=== PATIENT | male | born 1985 | race African-American/Black ===

== ENCOUNTER 2017-04-19 12:10 | Emergency (ER) | payer OTHER ==
[~2017-04-19] VITALS: Ht 180.3 cm; Wt 194.6 kg
[2017-04-19 12:39] LABS: HEMATOCRIT 39.8 % (38.0-50.0); MCH 28.4 PG (29.0-34.0); MCHC 32.4 G/DL (30.0-36.0); MCV 87.7 FL (86-99); MEAN PLAT.VOLUME 9.2 uM^3 (9.0-12.4); PLATELET COUNT 333 K/uL (156-360); RBC DIS.WIDTH-CV 12.5 % (11.8-14.6); RBC DIS.WIDTH-SD 40.1 % (39-53); RED BLOOD COUNT 4.54 M/uL (4.00-5.50); WHITE BLOOD COUNT 9.3 K/uL (4.1-10.2)
[2017-04-19 12:47] LABS: CHLORIDE 105 mEq/L (99-109); POTASSIUM 3.8 mEq/L (3.7-5.4); SODIUM 139 mEq/L (136-147)
[2017-04-19 12:49] LABS: GLUCOSE 106 mg/dL (70-99)
[2017-04-19 12:50] LABS: ANION GAP 10 MEQ/L (2-14)
[2017-04-19 12:53] LABS: GFR ESTIMATE (CALCULATED) > 59 mL/min/
[2017-04-19 12:54] LABS: UREA NITROGEN (BUN) 13 mg/dL (9-23)
[2017-04-19 13:01] LABS: TROP-I INTERPRETATION NEGATIVE; TROPONIN-I < 0.01 ng/mL (0.0-0.30)
[2017-04-19 14:43] LABS: TROP-I INTERPRETATION NEGATIVE; TROPONIN-I < 0.01 ng/mL (0.0-0.30)
[2017-04-19 14:57] VITALS: BP 150/77
== END 2017-04-19 14:58 | disposition home or self-care (01) ==
LOC: EME 12:10
PROVIDERS: Nurse Practitioner Family
DX: R00.2 Palpitations (principal); F14.90 Cocaine use, unspecified, uncomplicated; F32.9 Major depressive disorder, single episode, unspecified; F17.200 Nicotine dependence, unspecified, uncomplicated; E66.01 Morbid (severe) obesity due to excess calories
CPT/HCPCS: 71020; 80048; 84484; 85027; 93005; 99281; 99285

== ENCOUNTER 2017-07-06 14:43 | Emergency (ER) | payer OTHER ==
[~2017-07-06] VITALS: Ht 180.3 cm; Wt 182.8 kg
[2017-07-06 18:55] LABS: HEMATOCRIT 44.2 % (38.0-50.0); HEMOGLOBIN 14.1 G/DL (12.5-16.6); MCH 28.4 PG (29.0-34.0); MCHC 31.9 G/DL (30.0-36.0); MCV 89.1 FL (86-99); PLATELET COUNT 295 K/uL (156-360); RBC DIS.WIDTH-CV 13.2 % (11.8-14.6); RBC DIS.WIDTH-SD 42.9 % (39-53); RED BLOOD COUNT 4.96 M/uL (4.00-5.50); WHITE BLOOD COUNT 7.3 K/uL (4.1-10.2)
[2017-07-06 19:03] LABS: CHLORIDE 103 mEq/L (99-109); POTASSIUM 4.3 mEq/L (3.7-5.4); SODIUM 140 mEq/L (136-147)
[2017-07-06 19:05] LABS: GLUCOSE 109 mg/dL (70-99)
[2017-07-06 19:09] LABS: CREATININE 1.4 mg/dL (0.6-1.3); GFR ESTIMATE (CALCULATED) > 59 mL/min/ (58.99-99999)
[2017-07-06 19:10] LABS: UREA NITROGEN (BUN) 10 mg/dL (9-23)
[2017-07-06] MEDS ORDERED: CLINDAMYCIN HC300 MG PO (19:19)
[2017-07-06] MEDS ORDERED: XARELTO15 MG PO (20:29)
[2017-07-06 20:55] VITALS: BP 142/82
== END 2017-07-06 20:56 | disposition home or self-care (01) ==
LOC: EME 14:43
PROVIDERS: Physician Assistant
PROC: 0H9EXZZ Drainage of Left Lower Arm Skin, External Approach (ICD-10-PCS; principal; 2017-07-06)
DX: L02.414 Cutaneous abscess of left upper limb (principal); I82.622 Acute embolism and thrombosis of deep veins of left upper extremity; F19.10 Other psychoactive substance abuse, uncomplicated
CPT/HCPCS: 73080; 80048; 83605; 85027; 87040; 87070; 87075; 87077; 87147; 87186; 87205; 93971; 99281; 99284

== ENCOUNTER 2017-10-13 21:06 | Emergency (ER) | payer OTHER ==
[~2017-10-13] VITALS: Ht 175.3 cm; Wt 181.0 kg
[~2017-10-13 21:06] MED LIST: CLINDAMYCIN HC300 MG PO; XARELTO15 MG PO
[2017-10-13 21:28] LABS: HEMATOCRIT 40.6 % (38.0-50.0); HEMOGLOBIN 13.6 G/DL (12.5-16.6); MCH 28.9 PG (29.0-34.0); MCHC 33.5 G/DL (30.0-36.0); MCV 86.4 FL (86-99); PLATELET COUNT 312 K/uL (156-360); WHITE BLOOD COUNT 7.4 K/uL (4.1-10.2)
[2017-10-13 21:41] LABS: ALBUMIN 4.4 g/dL (3.2-4.8); CHLORIDE 108 mEq/L (99-109); POTASSIUM 3.9 mEq/L (3.7-5.4); SODIUM 141 mEq/L (136-147)
[2017-10-13 21:44] LABS: GLUCOSE 97 mg/dL (70-99); TOTAL PROTEIN 7.8 g/dL (6.4-8.3)
[2017-10-13 21:46] LABS: TOTAL BILIRUBIN 1.1 mg/dL (0.0-1.0)
[2017-10-13 21:47] LABS: ALKALINE PHOSPHATASE 86 IU/L (3-129); SERUM ETHYL ALCOHOL < 10 mg/dL
[2017-10-13 21:48] LABS: CREATININE 1.4 mg/dL (0.6-1.3); GFR ESTIMATE (CALCULATED) > 59 mL/min/ (58.99-99999)
[2017-10-13 21:49] LABS: AST (GOT) 85 IU/L (2-34); UREA NITROGEN (BUN) 13 mg/dL (9-23)
[2017-10-13 21:50] LABS: ALT (GPT) 69 IU/L (3-49)
[2017-10-13 21:51] LABS: LIPASE 12 U/L (1.0-51.0)
[2017-10-13 21:53] LABS: TROP-I INTERPRETATION NEGATIVE; TROPONIN-I < 0.01 ng/mL (0.0-0.30)
[2017-10-13 22:05] LABS: AMPHETAMINE NEGATIVE (500 ng/mL); BARBITURATES NEGATIVE (200 ng/mL); BENZODIAZEPINES NEGATIVE (150 ng/mL); BUPRENORPHINE NEGATIVE (10 ng/mL); COCAINE PRESUMPTIVE POSITIVE (150 ng/mL); METHADONE NEGATIVE (200 ng/mL); METHAMPHETAMINE NEGATIVE (500 ng/mL); OPIATES (MORPHINE) NEGATIVE (100 ng/mL); OXYCODONE NEGATIVE (100 ng/mL); PHENCYCLIDINE NEGATIVE (25 ng/mL); PROPOXYPHENE NEGATIVE (300 ng/mL); THC CANNABINOIDS NEGATIVE (50 ng/mL); TRICYCLIC ANTIDEPRESSANTS NEGATIVE (300 ng/mL)
[2017-10-14 03:20] VITALS: BP 144/91
== END 2017-10-14 03:35 | disposition home or self-care (01) ==
LOC: EME 21:06
PROVIDERS: Emergency Medicine
DX: T40.5X1A Poisoning by cocaine, accidental (unintentional), initial encounter (principal); G47.30 Sleep apnea, unspecified; E66.01 Morbid (severe) obesity due to excess calories; Z68.43 Body mass index [BMI] 50.0-59.9, adult; I45.10 Unspecified right bundle-branch block
CPT/HCPCS: 71045; 80053; 83690; 84484; 84999; 85027; 93005; 99281; 99284; G0480

== ENCOUNTER 2018-02-19 10:17 | Emergency (ER) | payer OTHER ==
[~2018-02-19] VITALS: Ht 180.3 cm; Wt 185.5 kg
[2018-02-19 11:50] LABS: BASOPHIL (%) 0.7 % (0-1); EOSINOPHIL (%) 1.6 % (0-5); EOSINOPHIL COUNT 0.1 K/uL (0-0.3); HEMATOCRIT 39.6 % (38.0-50.0); HEMOGLOBIN 13.2 G/DL (12.5-16.6); IMMATURE GRANULOCYTE (%) 0.2 % (0.0-0.7); LYMPHOCYTE (%) 36.3 % (15-42); LYMPHOCYTE COUNT 2.1 K/uL (1.0-2.8); MCH 29.8 PG (29.0-34.0); MCHC 33.3 G/DL (30.0-36.0); MCV 89.4 FL (86-99); MONOCYTE (%) 9.4 % (3-12); MONOCYTE COUNT 0.5 K/uL (0-0.8); NEUTROPHIL (%) 51.8 % (45-76); PLATELET COUNT 227 K/uL (156-360); RBC DIS.WIDTH-CV 12.7 % (11.8-14.6); RED BLOOD COUNT 4.43 M/uL (4.00-5.50); WHITE BLOOD COUNT 5.8 K/uL (4.1-10.2)
[2018-02-19 12:00] LABS: CHLORIDE 107 mEq/L (99-109); POTASSIUM 4.4 mEq/L (3.7-5.4); SODIUM 141 mEq/L (136-147)
[2018-02-19 12:01] LABS: D-DIMER ELISA < 150.00 ng/mLDDU (<230); PTT 30.9 SEC (25-37)
[2018-02-19 12:02] LABS: GLUCOSE 87 mg/dL (70-99)
[2018-02-19 12:06] LABS: CREATININE 1.1 mg/dL (0.6-1.3); GFR ESTIMATE (CALCULATED) > 59 mL/min/ (58.99-99999)
[2018-02-19 12:07] LABS: UREA NITROGEN (BUN) 14 mg/dL (9-23)
[2018-02-19 12:12] LABS: TROP-I INTERPRETATION NEGATIVE; TROPONIN-I < 0.01 ng/mL (0.0-0.30)
[2018-02-19 13:52] LABS: TROP-I INTERPRETATION NEGATIVE; TROPONIN-I 0.01 ng/mL (0.0-0.30)
[2018-02-19 14:15] VITALS: BP 120/65
== END 2018-02-19 14:27 | disposition home or self-care (01) ==
LOC: EME 10:17
PROVIDERS: Emergency Medicine
DX: R07.89 Other chest pain (principal)
CPT/HCPCS: 71045; 80048; 84484; 85025; 85379; 85610; 85730; 93005; 99281; 99284

== ENCOUNTER 2018-02-25 03:11 | Emergency (ER) | payer OTHER ==
[2018-02-25 03:31] LABS: BASOPHIL (%) 0.5 % (0-1); EOSINOPHIL (%) 0.8 % (0-5); EOSINOPHIL COUNT 0.1 K/uL (0-0.3); HEMATOCRIT 39.6 % (38.0-50.0); HEMOGLOBIN 13.4 G/DL (12.5-16.6); IMMATURE GRANULOCYTE (%) 0.4 % (0.0-0.7); LYMPHOCYTE (%) 32.1 % (15-42); LYMPHOCYTE COUNT 2.6 K/uL (1.0-2.8); MCH 29.6 PG (29.0-34.0); MCHC 33.8 G/DL (30.0-36.0); MCV 87.6 FL (86-99); MONOCYTE COUNT 0.8 K/uL (0-0.8); NEUTROPHIL (%) 56.2 % (45-76); NEUTROPHIL COUNT 4.5 K/uL (1.8-6.4); PLATELET COUNT 272 K/uL (156-360); RBC DIS.WIDTH-CV 12.4 % (11.8-14.6); RBC DIS.WIDTH-SD 39.8 % (39-53); RED BLOOD COUNT 4.52 M/uL (4.00-5.50)
[2018-02-25 03:38] LABS: AMYLASE 35 IU/L (1-118); CHLORIDE 106 mEq/L (99-109); POTASSIUM 3.6 mEq/L (3.7-5.4); SODIUM 141 mEq/L (136-147)
[2018-02-25 03:40] LABS: GLUCOSE 113 mg/dL (70-99)
[2018-02-25 03:43] LABS: CREATININE 1.4 mg/dL (0.6-1.3); GFR ESTIMATE (CALCULATED) > 59 mL/min/ (58.99-99999); SERUM ETHYL ALCOHOL < 10 mg/dL
[2018-02-25 03:44] LABS: UREA NITROGEN (BUN) 12 mg/dL (9-23)
[2018-02-25 04:25] LABS: LIPASE 13 U/L (1.0-51.0)
== END 2018-02-25 05:03 | disposition home or self-care (01) ==
LOC: EME 03:11
PROVIDERS: Emergency Medicine
PROC: 3E0234Z Introduction of Serum, Toxoid and Vaccine into Muscle, Percutaneous Approach (ICD-10-PCS; principal; 2018-02-25)
DX: S70.311A Abrasion, right thigh, initial encounter (principal); R41.82 Altered mental status, unspecified; X95.9XXA Assault by unspecified firearm discharge, initial encounter; Z23 Encounter for immunization
CPT/HCPCS: 73551; 80048; 81003; 82150; 83690; 85025; 86850; 86900; 86901; 90832; 99281; 99284; G0480

== ENCOUNTER 2018-03-01 12:24 | Emergency (ER) | payer OTHER ==
[~2018-03-01] VITALS: Ht 193 cm; Wt 175.5 kg
[2018-03-01 13:24] LABS: BASOPHIL (%) 0.4 % (0-1); EOSINOPHIL (%) 1.1 % (0-5); EOSINOPHIL COUNT 0.1 K/uL (0-0.3); HEMATOCRIT 39.7 % (38.0-50.0); HEMOGLOBIN 13.2 G/DL (12.5-16.6); IMMATURE GRANULOCYTE (%) 0.3 % (0.0-0.7); LYMPHOCYTE (%) 29.6 % (15-42); LYMPHOCYTE COUNT 2.2 K/uL (1.0-2.8); MCH 29.6 PG (29.0-34.0); MCHC 33.2 G/DL (30.0-36.0); MONOCYTE (%) 9.7 % (3-12); MONOCYTE COUNT 0.7 K/uL (0-0.8); NEUTROPHIL (%) 58.9 % (45-76); NEUTROPHIL COUNT 4.4 K/uL (1.8-6.4); PLATELET COUNT 260 K/uL (156-360); RBC DIS.WIDTH-CV 12.6 % (11.8-14.6); RBC DIS.WIDTH-SD 41.1 % (39-53); RED BLOOD COUNT 4.46 M/uL (4.00-5.50); WHITE BLOOD COUNT 7.5 K/uL (4.1-10.2)
[2018-03-01 13:35] LABS: ALBUMIN 3.9 g/dL (3.2-4.8); CHLORIDE 108 mEq/L (99-109); SODIUM 141 mEq/L (136-147)
[2018-03-01 13:38] LABS: GLUCOSE 95 mg/dL (70-99); TOTAL PROTEIN 7.2 g/dL (6.4-8.3)
[2018-03-01 13:40] LABS: TOTAL BILIRUBIN 0.5 mg/dL (0.0-1.0)
[2018-03-01 13:41] LABS: SERUM ETHYL ALCOHOL < 10 mg/dL
[2018-03-01 13:42] LABS: ALKALINE PHOSPHATASE 79 IU/L (3-129); CREATININE 1.2 mg/dL (0.6-1.3); GFR ESTIMATE (CALCULATED) > 59 mL/min/ (58.99-99999)
[2018-03-01 13:43] LABS: AST (GOT) 73 IU/L (2-34); DIRECT BILIRUBIN 0.2 mg/dL (0.0-0.3)
[2018-03-01 13:44] LABS: UREA NITROGEN (BUN) 8 mg/dL (9-23)
[2018-03-01 13:45] LABS: ACETAMINOPHEN (TYLENOL) < 10 mcg/mL (10-30); ALT (GPT) 95 IU/L (3-49); SALICYLATE < 5.0 MG/DL (15-30)
[2018-03-01 13:46] LABS: LIPASE 11 U/L (1.0-51.0)
[2018-03-01 15:31] VITALS: BP 131/73
== END 2018-03-01 15:08 | disposition home or self-care (01) ==
LOC: EME 12:24
PROVIDERS: Emergency Medicine
DX: L03.115 Cellulitis of right lower limb (principal); R19.5 Other fecal abnormalities; R05 Cough; R41.82 Altered mental status, unspecified; I45.10 Unspecified right bundle-branch block; R53.1 Weakness; R06.02 Shortness of breath; E66.01 Morbid (severe) obesity due to excess calories; Z68.42 Body mass index [BMI] 45.0-49.9, adult
CPT/HCPCS: 71045; 80048; 80076; 83690; 85025; 93005; 99281; 99285; G0480